=== PATIENT | male | born 1985 | race Caucasian/White ===

== ENCOUNTER 2022-06-27 07:21 | Emergency (ER) | payer MEDICAID, OTHER ==
[~2022-06-27] VITALS: Ht 172.7 cm; Wt 62.3 kg
[2022-06-27] MEDS ORDERED: KETOROLAC TROMETH 60MG/2ML VIAL IM ONE (07:45)
[2022-06-27] MEDS ORDERED: LORazepam 2MG/ML-1ML VIAL IM ONE (07:45)
[2022-06-27 09:58] VITALS: BP 133/75
[2022-06-27] MEDS ORDERED: PROPOFOL 10 MG/ML 20 ML IV ONE (10:45)
[2022-06-27] MEDS ORDERED: KETAMINE 50mg/ML 10ml Vial (500mg/10ml) IV ONE (10:45)
[2022-06-27] MEDS ORDERED: NAP500T PO (12:03)
== END 2022-06-27 18:07 | disposition home or self-care (01) ==
LOC: ER 07:21
DX: S43.004A Unspecified dislocation of right shoulder joint, initial encounter (principal); X58.XXXA Exposure to other specified factors, initial encounter; Y93.89 Activity, other specified; Y92.89 Other specified places as the place of occurrence of the external cause; Y99.8 Other external cause status
CPT/HCPCS: 23650; 73020; 73030; 73200; 96372; 99285; J1885; J2060; J2704; J7030; 96374

== ENCOUNTER 2022-09-26 15:30 | Emergency (ER) | payer MEDICAID ==
[~2022-09-26] VITALS: Ht 170.2 cm; Wt 59.4 kg
[~2022-09-26 15:30] MED LIST: NAP500T PO
[2022-09-26 15:40] VITALS: PULSE 100; RESP 22; TEMP 98.4; O2SAT 97
[2022-09-26] MEDS ORDERED: ETOMIDATE (2MG/ML) 20ML VIAL IV ONE (16:00)
[2022-09-26] MEDS ORDERED: ONDANSETRON ODT 4 MG TAB PO ONE (16:15)
[2022-09-26] MEDS ORDERED: IBUP-1454 PO (16:58)
[2022-09-26 17:43] VITALS: BP 144/91; PULSE 95; RESP 17; O2SAT 99
== END 2022-09-26 17:46 | disposition home or self-care (01) ==
LOC: ER 15:30
DX: S43.004A Unspecified dislocation of right shoulder joint, initial encounter (principal); Z79.899 Other long term (current) drug therapy; X58.XXXA Exposure to other specified factors, initial encounter; Y93.89 Activity, other specified; Y92.89 Other specified places as the place of occurrence of the external cause; Y99.8 Other external cause status
CPT/HCPCS: 23650; 73020; 73030; 99152; 99285; Q0162

== ENCOUNTER 2023-04-16 13:00 | Emergency (ER) | payer MEDICAID ==
[~2023-04-16] VITALS: Ht 170.2 cm; Wt 63.0 kg
[~2023-04-16 13:00] MED LIST changes: +IBUP-1454 PO
[2023-04-16 13:45] VITALS: PULSE 79; RESP 18; O2SAT 100
[2023-04-16] MEDS: ONDANSETRON HCL 4 MG/2 ML VIAL IV ONE (13:58)
[2023-04-16] MEDS: ETOMIDATE (2MG/ML) 20ML VIAL IV ONE (14:09)
[2023-04-16 14:25] VITALS: TEMP 98.7
[2023-04-16 14:50] VITALS: BP 125/74; PULSE 68; RESP 16; O2SAT 99
== END 2023-04-16 15:15 | disposition home or self-care (01) ==
LOC: ER 13:00
DX: S43.004A Unspecified dislocation of right shoulder joint, initial encounter (principal); X58.XXXA Exposure to other specified factors, initial encounter; Y93.89 Activity, other specified; Y92.89 Other specified places as the place of occurrence of the external cause; Y99.8 Other external cause status
CPT/HCPCS: 23650; 73020; 73030

== ENCOUNTER 2023-11-24 13:59 | Emergency (ER) | payer MEDICAID ==
[~2023-11-24] VITALS: Ht 170.2 cm; Wt 66.2 kg
[2023-11-24] MEDS: ONDANSETRON HCL 4 MG/2 ML VIAL IV ONE (17:28)
[2023-11-24] MEDS: SODIUM CHLORIDE 0.9% 1,000 ML IV ONE ×2 (17:36→21:48)
[2023-11-24] MEDS: KETOROLAC TROMETH 30 MG/ML 1ML VIAL IV ONE (17:42)
[2023-11-24 21:51] VITALS: TEMP 97.8
[2023-11-24] MEDS: PROPOFOL 10 MG/ML 20 ML IV ONE ×3 (21:52→23:28)
[2023-11-25] VITALS: BP 133/78; PULSE 87; RESP 22; O2SAT 100
== END 2023-11-25 01:04 | disposition home or self-care (01) ==
LOC: ER 13:59
DX: S43.004A Unspecified dislocation of right shoulder joint, initial encounter (principal); X58.XXXA Exposure to other specified factors, initial encounter; Y93.89 Activity, other specified; Y92.89 Other specified places as the place of occurrence of the external cause; Y99.8 Other external cause status
CPT/HCPCS: 23650; 73030; 96361; 96374; 96375; 99152; 99285; J1885; J2405; J2704; J7030